=== PATIENT | male | born 1955 | race Caucasian/White ===

== ENCOUNTER 2018-10-03 17:51 | Emergency (ER) | payer MEDICAID ==
[2018-10-03] MEDS ORDERED: PENICILLIN VK 500 MG TAB PO ONE (18:44)
--- NOTE | 2018-10-03 18:46 | EDPHY ---
General Time Seen by Provider: 10/03/18 18:21 Narrative: CLINICAL IMPRESSION: Dentalgia, likely periapical abscess ASSESSMENT/PLAN: 63-year-old male presents to the emergency department with pain along 3 of the upper left teeth for the last 2 days. No associated facial swelling or erythema , intraoral or gingival swelling, and no clinical signs to suggest ANUG, gingival buccal abscess, Ciaran's angina, facial cellulitis or facial abscess. Patient likely suffering from a periapical abscess of the left upper canine. No fluctuance or drainable fluid collection on exam. Patient is nontoxic, nonseptic, afebrile, and has an appointment tomorrow with a dentist. He was started on penicillin and given a prescription for pain medication. He declined dental block. Warning signs return to ED sooner outlined and discharge. DIFFERENTIAL DX: Differential includes but not limited to periapical abscess, dentalgia, gingival buccal abscess, facial cellulitis, facial abscess, ANUG ED PROCEDURES: See lab and/or imaging results below CHIEF COMPLAINT: Tooth pain HPI: 63-year-old male presents to the emergency department with left upper tooth pain for the last 2 days. Patient denies any kind of trauma, broken tooth, or history of recent dental procedure. He reports his front 2 teeth are capped. His pain is located over the left incisor. He has no facial swelling, erythema , warmth, fever, chills or difficulty tolerating his secretions. No neck swelling. He has an appointment tomorrow with his dentist PAST MEDICAL HISTORY: See nurse triage notes See triage summary and nurse notes for addition applicable history Pertinent Past Surgical History: None reported Family History: Noncontributory Social History: Smoker REVIEW OF SYSTEMS: A full 10 point review of systems was negative except for those mentioned in HPI. PHYSICAL EXAM: General Appearance: Alert, oriented, appropriate, cooperative, NAD, well hydrated, non-toxic appearing, VSS, no hypoxia, anxious, tolerating secretions HEENT: TMs are clear bilaterally no perforation or FB, no injection, no evidence of serous or mucopurulent otitis. Oropharynx clear is no erythema or exudates, no tonsillar hypertrophy or asymmetry. Missing several molars on the upper palate. Reproducible pain to tapping the left incisor. No gingival buccal abscess, facial cellulitis or facial erythema Neck: Supple, nontender, no lymphadenopathy, no midline pain, FROM, no meningismus. Respiratory: There are no retractions, lungs are clear to auscultation. Cardiac: Regular rate and rhythm, no murmurs or gallops. Skin: Warm, dry, no rashes, no nodules on palpation. MEDICAL DECISION MAKING: Patient was seen independently. Secondary supervising physician at time of evaluation was: Dr. Nance . Diagnosis: Dentalgia with probable periapical abscess. New, requires workup Summary: See Assessment and Plan for summary of ED visit Patient Progress: Stable. - History Smoking Status: Current every day smoker - Objective Vital Signs: Initial Vital Signs Temperature (C) 36.4 C 10/03/18 17:55 Heart Rate 88 10/03/18 17:55 Respiratory Rate 18 10/03/18 17:55 Blood Pressure 141/92 H 10/03/18 17:55 O2 Sat (%) 94 10/03/18 17:55 O2 Delivery Mode Room Air Allergies/Adverse Reactions: No Known Allergies Allergy (Verified 10/03/18 17:54) Home Medications: Medication Instructions Recorded Hydrocodone/APAP 5/325 [Layton 1 - 2 tab PO Q4H PRN #10 tab 10/03/18 5/325 (*)] Penicillin V Potassium [Penicillin 500 mg PO QID #28 tab 10/03/18 VK] Medications Given: Discontinued Medications Penicillin V Potassium (Pen Vk) 500 mg PO EDNOW ONE PRN Reason: Protocol Stop: 10/03/18 18:45 Last Admin: 10/03/18 19:03 Dose: 500 mg Departure - Departure Disposition: Home, Routine, Self-Care Clinical Impression: Pain, dental, Periapical abscess Condition: Good Instructions: Dental Abscess (ED) Additional Instructions: DISCHARGE INSTRUCTIONS FROM YOUR DOCTOR Thank you for visiting our emergency department today. Please keep in mind that discharge from the emergency department does not mean that there is nothing wrong - it simply means that we have not identified an emergency condition that requires further evaluation or treatment in the hospital. You should always plan to follow up with primary care for re-evaluation of your condition in the next 2-3 days. If you have been referred to a specialist, please call as soon as possible (today or tomorrow) to schedule your follow up appointment at the appropriate time. PLEASE FOLLOW-UP WITH YOUR DENTIST TOMORROW SCHEDULED. ANTIBIOTICS WERE STARTED IN THE ER AND A PRESCRIPTION WAS GIVEN. WE ALSO GAVE A PRESCRIPTION FOR PAIN MEDICATION. DO NOT DRIVE OR DRINK ALCOHOL WHILE TAKING NARCOTIC PAIN MEDICATION. PLEASE BE AWARE, NARCOTICS CAN CAUSE CONSTIPATION, LETHARGY, AND INCREASE YOUR RISK OF FALLING. DO NOT TAKE TYLENOL AT THE SAME TIME VICODIN OR PERCOCET. RETURN TO THE EMERGENCY DEPARTMENT IMMEDIATELY FOR SEVERE PAIN, FACIAL SWELLING OR REDNESS, FEVER GREATER THAN 100.4, RACING HEART, NAUSEA OR VOMITING, THROAT SWELLING, DIFFICULTY HANDLING YOUR SALIVA, NECK SWELLING OR ANY OTHER CONCERNS. People present with illnesses and injuries in different ways, and it is always possible that we have missed something. You may always return for re-evaluation if symptoms worsen or if they are not improving or if you develop new/different symptoms. Again, thank you for choosing our emergency department. We hope that you feel better. Referrals: Sowmya Glover [Primary Care Provider] - As per Instructions Prescriptions: Hydrocodone/APAP 5/325 [L[place] 5/325 (*)] 1 - 2 tab PO Q4H PRN #10 tab PRN Reason: Pain, Moderate Penicillin V Potassium [Penicillin VK] 500 mg PO QID #28 tab
[2018-10-03 19:10] VITALS: BP 130/66
== END 2018-10-03 19:10 | disposition home or self-care (01) ==
DX: K08.89 Other specified disorders of teeth and supporting structures (principal); K04.7 Periapical abscess without sinus